=== PATIENT | female | born 1995 | race Caucasian/White ===

== ENCOUNTER 2019-09-22 11:46 | Emergency (ER) | payer OTHER ==
[~2019-09-22] VITALS: Ht 180.3 cm; Wt 63.5 kg
[2019-09-22 11:50] VITALS: BP_SYST 133
[2019-09-22 12:25] VITALS: BP_SYST 133
== END 2019-09-22 12:25 ==
LOC: SED 11:46
DX: Z02.89 Encounter for other administrative examinations (principal); F19.90 Other psychoactive substance use, unspecified, uncomplicated; F12.90 Cannabis use, unspecified, uncomplicated; Z88.1 Allergy status to other antibiotic agents
CPT/HCPCS: 99283

== ENCOUNTER 2023-06-28 15:08 | Emergency (ER) | payer MEDICAID, OTHER ==
[~2023-06-28] VITALS: Ht 172.7 cm; Wt 71.7 kg
[2023-06-28 15:08] VITALS: BP_SYST 109; PULSE 95; RESP 18; TEMP 98.2; O2SAT 98
== END 2023-06-28 16:04 ==
LOC: SED 15:08
DX: Z02.89 Encounter for other administrative examinations (principal); F19.10 Other psychoactive substance abuse, uncomplicated; F15.10 Other stimulant abuse, uncomplicated; Z88.1 Allergy status to other antibiotic agents; Z79.899 Other long term (current) drug therapy
CPT/HCPCS: 99283